=== PATIENT | female | born 1975 | race African-American/Black ===

== ENCOUNTER 2019-03-05 06:48 | Emergency (ER) | payer MEDICAID ==
[~2019-03-05] VITALS: Ht 154.9 cm; Wt 74.8 kg
[2019-03-05] MEDS ORDERED: AMOX1TAB61 PO ×2 (07:29→08:16)
[2019-03-05] MEDS ORDERED: NAPR-683 PO ×2 (07:29→08:16)
--- NOTE | 2019-03-05 07:29 | PHYS DOC ---
Past Medical History Past Medical History: Hypertension Past Surgical History: Other Alcohol Use: None Drug Use: Marijuana Adult General Chief Complaint Chief Complaint: ANIMAL BITE HPI HPI Patient is a 43 year old female who presents with complaining of cat bites. Patient states her cat bit her on left arm and left leg this morning and rated her pain as a severe pain. Patient is very anxious and crying and sensation wants something Intact. Patient states he Is not up-to-date with vaccinations and was bit last week. Patient is not up-to-date with tetanus immunization. Review of Systems Review of Systems Constitutional: Denies fever or chills [] Eyes: Denies change in visual acuity, redness, or eye pain [] HENT: Denies nasal congestion or sore throat [] Respiratory: Denies cough or shortness of breath [] Cardiovascular: No additional information not addressed in HPI [] GI: Denies abdominal pain, nausea, vomiting, bloody stools or diarrhea [] : Denies dysuria or hematuria [] Musculoskeletal: Denies back pain or joint pain [] Integument: Denies rash, reports skin lesions [] Neurologic: Denies headache, focal weakness or sensory changes [] Endocrine: Denies polyuria or polydipsia [] All other systems were reviewed and found to be within normal limits, except as documented in this note. Current Medications Current Medications Current Medications Medications (Trade) Dose Ordered Sig/Jones Start Time Stop Time Status Last Admin Dose Admin Acetaminophen/ Hydrocodone Bitart (Lortab 5/325) 1 tab 1X ONCE 03/05/19 07:30 03/05/19 07:31 DC 03/05/19 07:33 1 TAB Clonidine HCl (Catapres) 0.1 mg 1X ONCE 03/05/19 07:30 03/05/19 07:31 DC 03/05/19 07:44 0.1 MG Diphtheria/ Tetanus/Acell Pertussis (Boostrix) 0.5 ml ONCE ONCE 03/05/19 07:30 03/05/19 07:31 DC 03/05/19 08:09 0.5 ML Allergies Allergies Allergies Coded Allergies Type Severity Reaction Last Updated Verified Sulfa (Sulfonamide Antibiotics) Allergy Intermediate hives 03/05/19 Yes lisinopril Allergy Intermediate hives 03/05/19 Yes Physical Exam Physical Exam Constitutional: Well nourished, mild distress, non-toxic appearance, very anxious. [] HENT: Normocephalic, atraumatic. Eyes: PERRLA, EOMI, conjunctiva normal, no discharge. [] Neck: Normal range of motion, no tenderness, supple, no stridor. [] Cardiovascular:Heart rate regular rhythm, no murmur [] Lungs & Thorax: Bilateral breath sounds clear to auscultation [] Skin: Warm, dry, no erythema, no rash, multiple puncture wounds of left upper and lower extremity without active bleeding or sign of infection. Back: No tenderness, no CVA tenderness. [] Extremities: No tenderness, no cyanosis, no clubbing, ROM intact, no edema. [] Neurologic: Alert and oriented X 3, no focal deficits noted. [] Psychologic: Affect anxious, mood normal. [] Current Patient Data Vital Signs Vital Signs Date Time Temp Pulse Resp B/P (MAP) Pulse Ox O2 Delivery O2 Flow Rate FiO2 03/05/19 08:02 174/106 (128) 03/05/19 07:44 100 03/05/19 07:33 20 03/05/19 07:13 98.3 97 98.3 03/05/19 07:00 Room Air EKG EKG [] Radiology/Procedures Radiology/Procedures [] Course & Med Decision Making Course & Med Decision Making Evaluation of patient in ER showed 43-year-old female patient presented to ER with cat bite to left upper and lower extremity. Patient stated he was bit with something one week ago. Animal control was contacted. Patient also had blood pressure of 170s over 130s and stated she doesn't take her blood pressure medication for a while. Patient treated with [place] and chronic with improvement of blood pressure to 174/106. Tetanus was updated. Patient was advised to follow-up with unremarkable for instruction and take antibiotic and follow up with her primary care physician. Prescription for amlodipine, Augmentin and naproxen was given. Dragon Disclaimer Dragon Disclaimer This electronic medical record was generated, in whole or in part, using a voice recognition dictation system. Departure Departure Impression: Primary Impression: Cat bite Additional Impressions: Anxiety Hypertensive urgency Disposition: HOME, SELF-CARE (at [id number]) Condition: STABLE Patient Instructions: Animal Bite, Anxiety and Panic Attacks, Hypertension, Wound Care, [id number] Additional Instructions: Drink plenty of liquids Follow-up with your primary care physician in 3-5 days Return to ER if not getting better Follow up with animal control regarding your cat observation Keep wound dry and clean Scripts Amlodipine Besylate (AMLODIPINE BESYLATE) 10 Mg Tablet 10 MG PO DAILY, #30 TAB Prov: TONE VILLALBA MD 03/05/19 Naproxen (NAPROSYN) 500 Mg Tablet 1 TAB PO BID for pain, #20 TAB Prov: TONE VILLALBA MD 03/05/19 Amoxicillin/Potassium Clav (AUGMENTIN 875-125 TABLET) 1 Each Tablet 1 TAB PO Q12HR, #20 TAB Prov: TONE VILLALBA MD 03/05/19 Problem Qualifiers Primary Impression: Cat bite Encounter type: initial encounter Qualified Codes: W55.01XA - Bitten by cat, initial encounter TONE VILLALBA MD Mar 05, 2019 07:29
[2019-03-05] MEDS ORDERED: DIPHTH,PERTUSS(ACELL),TET TOX 0.5 ML DISP.SYRIN. VAX IM ONE (07:30)
[2019-03-05] MEDS ORDERED: HYDROcodone/APAP 5/325MG 1 TAB TABLET PO ONE (07:30)
[2019-03-05] MEDS ORDERED: cloNIDine HCL 0.1 MG TABLET PO ONE (07:30)
[2019-03-05 08:02] VITALS: BP 174/106
[2019-03-05] MEDS ORDERED: LISI-334 PO (08:15)
[2019-03-05] MEDS ORDERED: AMLO10TA8 PO (08:40)
== END 2019-03-05 08:41 | disposition home or self-care (01) ==
LOC: ER 06:48
DX: S41.152A Open bite of left upper arm, initial encounter (principal); F41.9 Anxiety disorder, unspecified; I16.0 Hypertensive urgency; I10 Essential (primary) hypertension; Z88.2 Allergy status to sulfonamides; Z88.8 Allergy status to other drugs, medicaments and biological substances; W55.01XA Bitten by cat, initial encounter; Y93.89 Activity, other specified; Y92.89 Other specified places as the place of occurrence of the external cause; Y99.8 Other external cause status
CPT/HCPCS: 90471; 90715; 99284